=== PATIENT | male | born 1970 | race Caucasian/White ===

== ENCOUNTER 2018-11-10 17:04 | Emergency (ER) | payer OTHER ==
[~2018-11-10] VITALS: Ht 180.3 cm; Wt 97.2 kg
[2018-11-10 17:36] LABS: BASOPHILS # (AUTO) 0.1 X10'3 (0-0.2); BASOPHILS % (AUTO) 1.1 % (0-1); EOSINOPHILS % (AUTO) 0.5 % (0-6); HEMATOCRIT 43.3 % (42.0-52.0); HEMOGLOBIN 14.6 g/dl (14.0-17.9); LYMPHOCYTES # (AUTO) 1.8 X10'3 (1.1-4.8); LYMPHOCYTES % (AUTO) 18.4 % (21-51); MEAN CORPUSCULAR HEMOGLOBIN 30.1 PG (27.0-31.0); MEAN CORPUSCULAR HGB CONC 33.7 g/dL (33.0-36.5); MEAN CORPUSCULAR VOLUME 89.3 FL (78-98); MEAN PLATELET VOLUME 7.3 FL (7.4-10.4); MONOCYTES # (AUTO) 0.9 X10'3 (0-0.9); MONOCYTES % (AUTO) 8.8 % (2-12); NEUTROPHILS % (AUTO) 71.2 % (42-75); PLATELET COUNT 295 X10'3 (140-440); RED BLOOD COUNT 4.85 X10'6 (4.70-6.10); RED CELL DISTRIBUTION WIDTH 14.7 % (11.5-14.5); WHITE BLOOD COUNT 9.8 X10'3 (4.5-11.0)
[2018-11-10 17:48] LABS: ALANINE AMINOTRANSFERASE 51 U/L (12-78); ALBUMIN 3.8 G/DL (3.4-5.0); ALBUMIN/GLOBULIN RATIO 1.2 (1.1-1.5); ALKALINE PHOSPHATASE 34 IU/L (46-116); ANION GAP 12 (8-16); ASPARTATE AMINO TRANSFERASE 43 U/L (10-37); BILIRUBIN,TOTAL 0.5 MG/DL (0.1-1.0); BLOOD UREA NITROGEN 21 MG/DL (7-18); BUN/CREATININE RATIO 18.4 (5.4-32.0); CHLORIDE 101 MMOL/L (99-107); CREATININE 1.14 MG/DL (0.60-1.10); GLUCOSE 104 MG/DL (70-104); POTASSIUM 3.3 MMOL/L (3.5-5.1); SODIUM 140 MMOL/L (135-145); TOTAL CARBON DIOXIDE 27.3 MMOL/L (24-32); eGFR 69 ML/MIN
[2018-11-10 17:55] LABS: PARTIAL THROMBOPLASTIN TIME 23 SECONDS (22-32)
[2018-11-10] MEDS ORDERED: normal saline 1000ML IV soln IVB ONE ×2 (18:20→21:35)
[2018-11-10] MEDS ORDERED: LORazepam 2 mg/ml vial IV ONE (18:20)
[2018-11-10 20:07] LABS: CREATINE KINASE 738 U/L (39-308)
[2018-11-10 21:29] LABS: CLARITY,URINE SLIGHTLY CLOUDY (Clear); COLOR,URINE YELLOW (Yellow); GLUCOSE, URINE NEGATIVE (Neg); KETONES,URINE 40 mg/dl (Neg); LEUKOCYTE ESTERASE ,URINE NEGATIVE (Neg); NITRITES, URINE NEGATIVE (Neg); OCCULT BLOOD,URINE NEGATIVE (Neg); PROTEIN,URINE NEGATIVE (Neg); UROBILINOGEN,URINE 0.2 E.U/dL (0.2-1.0)
[2018-11-10] MEDS ORDERED: metoclopramide 5 mg/ml inj IV ONE ×3 (21:35→23:00)
[2018-11-10 21:47] LABS: UA COLLECTION TYPE VOIDED
[2018-11-10 21:48] LABS: AMORPHOUS PHOSPHATES 3+; BACTERIA,URINE FEW /HPF (Neg); RBC,URINE NONE SEEN /HPF (0-2); SQUAMOUS EPITHELIAL CELL,UR FEW /LPF (FEW); WBC,URINE NONE SEEN /HPF (0-4)
[2018-11-10 22:46] LABS: URINE AMPHETAMINE SCREEN NEGATIVE (Neg); URINE BARBITUATE SCREEN NEGATIVE (Neg); URINE BENZODIAZEPINES SCREEN NEGATIVE (Neg); URINE CANNABINOID SCREEN POSITIVE (Neg); URINE COCAINE SCREEN NEGATIVE (Neg); URINE METHADONE SCREEN NEGATIVE (Neg); URINE OPIATE SCREEN NEGATIVE (Neg); URINE PHENCYCLIDINE SCREEN NEGATIVE (Neg)
[2018-11-10] MEDS ORDERED: PHE12.5T PO (23:02)
[2018-11-10 23:23] VITALS: BP 109/63
== END 2018-11-10 23:39 | disposition home or self-care (01) ==
LOC: ER 17:04
DX: R42 Dizziness and giddiness (principal); R11.10 Vomiting, unspecified; H93.13 Tinnitus, bilateral; R61 Generalized hyperhidrosis; R10.9 Unspecified abdominal pain; F11.90 Opioid use, unspecified, uncomplicated; Z79.899 Other long term (current) drug therapy
CPT/HCPCS: 36415; 71045; 80053; 80305; 81001; 82550; 84484; 85025; 85610; 85730; 93005; 96361; 96374; 96375; 96376; 99284; J2060; J2765; J7030

== ENCOUNTER 2019-08-28 16:55 | Emergency (ER) | payer OTHER ==
[~2019-08-28] VITALS: Ht 180.3 cm; Wt 85.8 kg
[~2019-08-28 16:55] MED LIST: PROM12.512 PO
[2019-08-28] MEDS ORDERED: aspirin 81mg tab.chew PO ONE (17:30)
[2019-08-28 17:56] LABS: BASOPHILS % (AUTO) 0.4 % (0-1); EOSINOPHILS % (AUTO) 0.4 % (0-6); HEMATOCRIT 47.5 % (42.0-52.0); HEMOGLOBIN 16.7 g/dl (14.0-17.9); LYMPHOCYTES # (AUTO) 0.9 X10'3 (1.1-4.8); LYMPHOCYTES % (AUTO) 9.2 % (21-51); MEAN CORPUSCULAR HEMOGLOBIN 30.6 PG (27.0-31.0); MEAN CORPUSCULAR HGB CONC 35.1 g/dL (33.0-36.5); MEAN CORPUSCULAR VOLUME 87.3 FL (78-98); MEAN PLATELET VOLUME 7.2 FL (7.4-10.4); MONOCYTES # (AUTO) 0.4 X10'3 (0-0.9); MONOCYTES % (AUTO) 4.1 % (2-12); NEUTROPHILS # (AUTO) 8.3 X10'3 (1.8-7.7); NEUTROPHILS % (AUTO) 85.9 % (42-75); PLATELET COUNT 275 X10'3 (140-440); RED BLOOD COUNT 5.44 X10'6 (4.70-6.10); RED CELL DISTRIBUTION WIDTH 14.7 % (11.5-14.5); WHITE BLOOD COUNT 9.7 X10'3 (4.5-11.0)
[2019-08-28 18:15] LABS: D-DIMER 0.21 MG/L FEU (0-0.50)
[2019-08-28 18:21] LABS: ALANINE AMINOTRANSFERASE 42 U/L (12-78); ALBUMIN 3.7 G/DL (3.4-5.0); ALBUMIN/GLOBULIN RATIO 1.1 (1.1-1.5); ALKALINE PHOSPHATASE 36 IU/L (46-116); ANION GAP 5 (8-16); ASPARTATE AMINO TRANSFERASE 33 U/L (10-37); BILIRUBIN,TOTAL 0.3 MG/DL (0.1-1.0); BLOOD UREA NITROGEN 15 MG/DL (7-18); BUN/CREATININE RATIO 15.3 (5.4-32.0); CHLORIDE 104 MMOL/L (99-107); CREATININE 0.98 MG/DL (0.60-1.10); GLUCOSE 111 MG/DL (70-104); POTASSIUM 3.6 MMOL/L (3.5-5.1); SODIUM 138 MMOL/L (135-145); TOTAL CARBON DIOXIDE 29.3 MMOL/L (24-32); eGFR 82 ML/MIN
[2019-08-28 18:25] LABS: MAGNESIUM 1.9 MG/DL (1.5-2.4)
[2019-08-28] MEDS ORDERED: PRED20TA PO (19:18)
[2019-08-28] MEDS ORDERED: predniSONE 20 mg tablet PO ONE (19:20)
[2019-08-28 19:26] VITALS: BP 125/75
== END 2019-08-28 19:43 | disposition home or self-care (01) ==
LOC: ER 16:55
DX: R06.00 Dyspnea, unspecified (principal); R06.02 Shortness of breath; R07.89 Other chest pain; F12.90 Cannabis use, unspecified, uncomplicated; F11.90 Opioid use, unspecified, uncomplicated; Z79.899 Other long term (current) drug therapy
CPT/HCPCS: 36415; 71045; 80053; 83735; 83880; 84484; 85025; 85379; 93005; 99285; J7512

== ENCOUNTER 2024-06-27 05:08 | Emergency (ER) | payer OTHER ==
[~2024-06-27] VITALS: Ht 180.3 cm; Wt 111.1 kg
[2024-06-27 05:12] VITALS: TEMP 98.4
[2024-06-27 08:03] LABS: D-DIMER 0.22 MG/L FEU (0-0.50)
[2024-06-27] MEDS ORDERED: ALBU8HFA INH (08:47)
[2024-06-27] MEDS ORDERED: LANS30CA56 PO (08:47)
[2024-06-27] MEDS ORDERED: CLAR500T22 PO (08:47)
[2024-06-27] MEDS ORDERED: AMIT-311 PO (08:47)
[2024-06-27] MEDS ORDERED: AMOX500C96 PO (08:47)
[2024-06-27 11:54] VITALS: BP 126/86; PULSE 67; RESP 15; O2SAT 98
== END 2024-06-27 11:57 | disposition home or self-care (01) ==
LOC: ER 05:08
DX: R10.13 Epigastric pain (principal); F12.90 Cannabis use, unspecified, uncomplicated; Z79.899 Other long term (current) drug therapy
CPT/HCPCS: 36415; 71045; 84484; 85379; 93005; 99285

== ENCOUNTER 2024-06-30 22:27 | Emergency (ER) | payer OTHER ==
[~2024-06-30] VITALS: Ht 180.3 cm; Wt 113.2 kg
[~2024-06-30 22:27] MED LIST changes: +ALBU8HFA INH; +AMIT-311 PO; +AMOX500C96 PO; +CLAR500T22 PO; +LANS30CA56 PO
[2024-06-30 22:50] VITALS: TEMP 99.3
[2024-06-30 23:13] LABS: BASOPHILS # (AUTO) 0.1 X10'3 (0-0.2); BASOPHILS % (AUTO) 1.2 % (0-1); EOSINOPHILS # (AUTO) 0.2 X10'3 (0-0.9); EOSINOPHILS % (AUTO) 3.1 % (0-6); HEMATOCRIT 49.3 % (42.0-52.0); HEMOGLOBIN 17.4 g/dl (14.0-17.9); LYMPHOCYTES # (AUTO) 1.4 X10'3 (1.1-4.8); MEAN CORPUSCULAR HEMOGLOBIN 31.2 PG (27.0-31.0); MEAN CORPUSCULAR HGB CONC 35.2 g/dL (33.0-36.5); MEAN CORPUSCULAR VOLUME 88.5 FL (78-98); MEAN PLATELET VOLUME 7.1 FL (7.4-10.4); MONOCYTES # (AUTO) 0.7 X10'3 (0-0.9); MONOCYTES % (AUTO) 10.9 % (2-12); NEUTROPHILS # (AUTO) 4.3 X10'3 (1.8-7.7); NEUTROPHILS % (AUTO) 63.8 % (42-75); PLATELET COUNT 261 X10'3 (140-440); RED BLOOD COUNT 5.57 X10'6 (4.70-6.10); RED CELL DISTRIBUTION WIDTH 13.7 % (11.5-14.5); WHITE BLOOD COUNT 6.7 X10'3 (4.5-11.0)
[2024-06-30 23:30] LABS: ALANINE AMINOTRANSFERASE 43 U/L (12-78); ALBUMIN 3.8 G/DL (3.4-5.0); ALBUMIN/GLOBULIN RATIO 1.1 (1.1-1.5); ALKALINE PHOSPHATASE 49 IU/L (46-116); ANION GAP 3 (8-16); ASPARTATE AMINO TRANSFERASE 40 U/L (10-37); BILIRUBIN,TOTAL 0.4 MG/DL (0.1-1.0); BLOOD UREA NITROGEN 19 MG/DL (7-18); CALCIUM 8.5 MG/DL (8.5-10.1); CHLORIDE 101 MMOL/L (99-107); CREATININE 1.12 MG/DL (0.60-1.10); GLUCOSE 102 MG/DL (70-104); POTASSIUM 3.7 MMOL/L (3.5-5.1); SODIUM 136 MMOL/L (135-145); TOTAL CARBON DIOXIDE 32.4 MMOL/L (24-32); TOTAL PROTEIN 7.3 G/DL (6.4-8.2); eCRCL 81 ML/MIN; eGFR 69 ML/MIN
[2024-06-30 23:39] LABS: PRO BRAIN NATRIURETIC PEPTIDE < 30 PG/ML (0-125)
[2024-07-01 00:37] VITALS: BP 143/88; PULSE 73; RESP 16; O2SAT 98
== END 2024-07-01 00:38 | disposition home or self-care (01) ==
LOC: ER 22:27
DX: R07.89 Other chest pain (principal)
CPT/HCPCS: 36415; 71045; 80053; 83880; 84484; 85025; 93005; 99285

== ENCOUNTER 2024-12-13 05:47 | Emergency (ER) | payer OTHER ==
[~2024-12-13] VITALS: Ht 180.3 cm; Wt 90.8 kg
[~2024-12-13 05:47] MED LIST changes: -ALBU8HFA INH; -AMIT-311 PO; -AMOX500C96 PO; -CLAR500T22 PO
[2024-12-13 05:51] VITALS: TEMP 97.6
[2024-12-13 07:43] LABS: BILIRUBIN,URINE NEGATIVE (Neg); CLARITY,URINE CLEAR (Clear); COLOR,URINE YELLOW (Yellow); GLUCOSE, URINE NEGATIVE (Neg); KETONES,URINE TRACE mg/dl (Neg); LEUKOCYTE ESTERASE ,URINE NEGATIVE (Neg); NITRITES, URINE NEGATIVE (Neg); OCCULT BLOOD,URINE NEGATIVE (Neg); PROTEIN,URINE NEGATIVE (Neg); UROBILINOGEN,URINE 0.2 E.U/dL (0.2-1.0)
[2024-12-13 07:47] LABS: UA COLLECTION TYPE CLN CATCH MIDSTREAM
[2024-12-13 08:17] LABS: BASOPHILS # (AUTO) 0.1 X10'3 (0-0.2); BASOPHILS % (AUTO) 1.4 % (0-1); EOSINOPHILS # (AUTO) 0.3 X10'3 (0-0.9); EOSINOPHILS % (AUTO) 5.1 % (0-6); HEMOGLOBIN 16.8 g/dl (14.0-17.9); LYMPHOCYTES # (AUTO) 1.9 X10'3 (1.1-4.8); LYMPHOCYTES % (AUTO) 33.8 % (21-51); MEAN CORPUSCULAR HEMOGLOBIN 30.4 PG (27.0-31.0); MEAN CORPUSCULAR HGB CONC 35.1 g/dL (33.0-36.5); MEAN CORPUSCULAR VOLUME 86.6 FL (78-98); MEAN PLATELET VOLUME 7.6 FL (7.4-10.4); MONOCYTES # (AUTO) 0.8 X10'3 (0-0.9); MONOCYTES % (AUTO) 13.6 % (2-12); NEUTROPHILS # (AUTO) 2.5 X10'3 (1.8-7.7); NEUTROPHILS % (AUTO) 46.1 % (42-75); PLATELET COUNT 221 X10'3 (140-440); RED BLOOD COUNT 5.54 X10'6 (4.70-6.10); RED CELL DISTRIBUTION WIDTH 13.4 % (11.5-14.5); WHITE BLOOD COUNT 5.5 X10'3 (4.5-11.0)
[2024-12-13 08:39] LABS: ALBUMIN 4.1 G/DL (3.4-5.0); ALBUMIN/GLOBULIN RATIO 1.2 (1.1-1.5); ALKALINE PHOSPHATASE 70 IU/L (46-116); ANION GAP 10 (8-16); BILIRUBIN,TOTAL 0.3 MG/DL (0.1-1.0); BLOOD UREA NITROGEN 21 MG/DL (7-18); BUN/CREATININE RATIO 14.6 (10.0-20.0); CHLORIDE 103 MMOL/L (99-107); CREATININE 1.44 MG/DL (0.60-1.10); LIPASE 42 U/L (16-77); SODIUM 143 MMOL/L (135-145); TOTAL CARBON DIOXIDE 30.5 MMOL/L (24-32); TOTAL PROTEIN 7.6 G/DL (6.4-8.2); eCRCL 62 ML/MIN; eGFR 51 ML/MIN
--- NOTE | 2024-12-13 08:55 | Physician Documentation ---
History of Present Illness Chief Complaint: Abdominal Pain Stated Complaint: ABD SWELLING Time Seen by MD: 08:40 OK to notify your PCP?: Yes Primary Medical Doctor: NONE " [facility] PRN Source: patient, RN/MD, RN notes reviewed, old records Mode of Arrival: POV Exam Limitations: no limitations HPI 54-year-old male with past medical history of hypertension, hyperlipidemia, SAJI presented to the ER with chief complaints of pain abdomen. Endorses pain abdomen, epigastric region, 6/10, burning type extending from epigastric region to chest, retrosternal. Abdominal pain is associated with bloating sensation, hot button, indigestion, nausea, dyspepsia, acid reflux for the past couple of days. He had a recent EGD and a he is on tegmet daily dose (couple of months Back). Endorses shortness of breath without orthopnea and PND, dizziness, nocturia, increased urinary frequency for the past three weeks. He endorses deg ree degenerative levels and sleep disturbances, snoring while sleeping on the back. He do reports that he is taking suboxone (buprenorphine +naloxone) after his break up with partner on he is feeding emotionally better with suboxone. he denied chest pain, palpitations, wheezing, hematemesis, melena, vomiting. Medication Reconciliation Allergies: Coded Allergies: No Known Allergies (Unverified , 12/13/24) Scheduled Esomeprazole Magnesium (Esomeprazole Magnesium), 1 CAP PO DAILY Promethazine Hcl (Phenergan), 1 TAB PO Q6H Discontinued Medications Lansoprazole (Lansoprazole), 1 CAP PO BID Past Medical History Past Medical History: Hypertension, Sleep Apnea, GERD Other Past Medical History: hyperlipidemia Past Surgical History: noncontributory Patient History: Patient reports no known family medical history. Smoking Status: Former smoker Alcohol Use: Rarely Drug Use: marijuana, heroin, other Lives with: Spouse Lives In: Home Past Social History: soboxone(buprenorphine+naloxone) Review of Systems All Other Systems at this time: Reviewed and Negative ROS reviewd in full & negative except positive pertinents as in hpi Physical Exam Vital Signs: RN Vital Signs have been reviewed: Yes, Temperature: 97.6, Source: Temporal, Heart Rate: 97, Respiratory Rate: 16, BP: 141/100, Pulse Oximetry: 96, Weight: 90.800 Oxygen Flow Rate: 0 General Appearance General: Awake and Alert, oriented to time place person. no acute distress. overweight HEENT: Conjunctiva pink, Sclera clear, Mucus Membranes moist. Neck: Supple without masses and tenderness. no midline tenderness on palpation or with full ROM Resp: Unlabored. Lungs clear to auscultation bilaterally. Heart: Regular Rate and rhythm, normal S1 and S2 without murmur, rub or gallop. Abdomen: Soft and non tender no organomegaly no signs of trauma Extremities: No cyanosis,clubbing or edema. Skin: Warm and Dry. Neuro: GCS 15; no focal deficits Progress Results/Orders Reviewed/noted all lab results: Yes Results/Orders Orders - OTILIO BARBER MD Ethanol (12/13/24 08:53) MG (12/13/24 08:53) Drug Screen, Urine (12/13/24 08:53) Vital Signs 12/13/24 12/13/24 12/13/24 05:51 07:30 07:30 Temp 97.6 Pulse 96 97 Resp 15 16 16 B/P (MAP) 156/78 141/100 (114) Pulse Ox 98 96 O2 Flow Rate 0 Laboratory Tests Test 12/13/24 07:09 12/13/24 08:01 Urine Specimen Description Cln catch midstream Urine Color Yellow Urine Clarity Clear Urine pH 6.0 Urine Specific [place] 1.020 Urine Protein Negative Urine Glucose (UA) Negative Urine Ketones Trace H Urine Occult Blood Negative Urine Nitrite Negative Urine Bilirubin Negative Urine Urobilinogen 0.2 Urine Leukocyte Esterase Negative Urine Culture Indicated Not ind Volume Urine Centrifuged 10 ml Urine Comment White Blood Count 5.5 Red Blood Count 5.54 Hemoglobin 16.8 Hematocrit 48.0 Mean Corpuscular Volume 86.6 Mean Corpuscular Hemoglobin 30.4 Mean Corpuscular Hemoglobin Concent 35.1 Red Cell Distribution Width 13.4 Platelet Count 221 Mean Platelet Volume 7.6 Neutrophils (%) (Auto) 46.1 Lymphocytes (%) (Auto) 33.8 Monocytes (%) (Auto) 13.6 H Eosinophils (%) (Auto) 5.1 Basophils (%) (Auto) 1.4 H Neutrophils # (Auto) 2.5 Lymphocytes # (Auto) 1.9 Monocytes # (Auto) 0.8 Eosinophils # (Auto) 0.3 Basophils # (Auto) 0.1 CBC Comment Sodium Level 143 Chloride Level 103 Carbon Dioxide Level 30.5 Anion Gap 10 Blood Urea Nitrogen 21 H Creatinine 1.44 H Estimated GFR/1.73 m2 51 BUN/Creatinine Ratio 14.6 Calcium Level 9.0 Total Bilirubin 0.3 Alkaline Phosphatase 70 Total Protein 7.6 Albumin 4.1 Globulin 3.5 Albumin/Globulin Ratio 1.2 Lipase 42 Chemistry Comments Re-Evaluation Re-Evaluation : Re-Evaluation: Improved Progress Patient was seen and examined. Patient is given reassurance. Patient was seen by the resident. I reviewed the case with the resident and agreed with his management. Patient was then discharged home in to take his medications as prescribed. EKG/XRAY/CT/US/VASC/MRI EKG : Additional Comment [facility] Test Date: 2024-12-13 Test Time: 09:13:15 Pat Name: ALEXIS ROCHE Department: [facility]- Patient ID: [id number] Room: Gender: M Bond Clerk: : 1970 Requested By: OTILIO BARBER Order Number: [id number] Reading MD: Dr. Otilio Barber Measurements Intervals [place] Rate: 80 P: 27 AK: 188 QRS: 20 QRSD: 110 T: -5 QT: 387 QTc: 447 Interpretive Statements Sinus rhythm Probable left atrial enlargement Borderline T abnormalities, inferior leads Electronically Signed On 12-13-2024 11:30:[address] Otilio Barber Please click the below link to view image of tracing. EKG Date and Time:12/13/24 0913 Electronically Signed by: OTILIO BARBER MD Date and Time: 12/13/24 1130 Chest X-Ray : Additional Comments EXAM: DI CHEST,SINGLE VIEW HISTORY: Shortness of breath COMPARISON: DI CHEST,SINGLE VIEW on DOS: 06/30/24, DI CHEST,SINGLE VIEW on DOS: 06/27/24, CHEST,SINGLE VIEW on DOS: 08/28/19, CT scan of the abdomen performed earlier same day TECHNIQUE: Portable upright AP view of the chest was performed. FINDINGS: There is mild relative elevation of the right hemidiaphragm. No pneumothorax, consolidative infiltrates, or pulmonary edema. The heart is borderline e nlarged. IMPRESSION: No acute intrathoracic process. Electronically Signed by:VENKATA HUGGINS MD Date & Time: 12/13/[address] : Impression CT ABDOMEN AND PELVIS WITHOUT CONTRAST CLINICAL HISTORY: pain abdomen TECHNIQUE: Multiple contiguous axial images of the abdomen and pelvis without intravenous contrast. The images were reformatted degenerate coronal and sagittal reconstructions. All CT scans at this medical facility are performed using dose modulation techniques as appropriate to a performed exam including the following:Automated exposure control was utilized; adjustment of the MA and/or KV according to patient size; and use of iterative reconstruction technique. Radiation Dose Information: CT Dose: CTDI volume is 32 mGy. Dose-length product is 18 13 mGy*cm Comparison: None FINDINGS: Evaluation of the abdomen and pelvis is limited without intravenous contrast. The liver, gallbladder, pancreas, kidneys, adrenal glands, and spleen appear within normal limits. There is no gross evidence of abdominal lymphadenopathy. There is no free fluid or free air. The stomach grossly appears unremarkable. The small and large bowel loops demonstrate normal caliber and distribution. The appendix is not seen in the right lower quadrant abdomen. There are no secondary signs of acute appendicitis. There is moderate amount of stool in the colon. The abdominal aorta and IVC appear within normal limits. The bladder appears unremarkable for the degree of distention. Pelvic organ appears within normal limits. There is no gross evidence of a pelvic mass. There is no free fluid collection. Lung bases are clear. There is no acute osseous abnormality. IMPRESSION: 1. There is no acute process in the abdomen and pelvis. 2. Moderate amount of stool in the colon. HS:Y Electronically Signed by:EVER MACIAS MD Date & Time: 12/13/24 1009 Medical Decision Making Findings GERD Recent EGD, on tagmet daily Treated with GI cocktail-sucralfate and pantoprazole Shortness of breathe secondary to obstructive sleep apnea No need of oxygen support Needs to follow up with primary care for sleep apnea evaluation and treatment. STALIN Serum creatinine is 1.44 Received 1 L of normal saline bolus. Hypertension Blood pressures in the 140s Departure Disposition: 01 HOME / SELF CARE / HOMELESS Impression: Primary Impression: GERD (gastroesophageal reflux disease) Qualified Codes: K21.9 - Gastro-esophageal reflux disease without esophagitis Additional Impressions: SAJI (obstructive sleep apnea) Hypertension Qualified Codes: I10 - Essential (primary) hypertension Condition: Stable Discharge Instructions: Abdominal Pain (Nonspecific) Additional Instructions: Follow up with primary care physician in one week with a CBC, CMP Follow up with a excelsior cutter for further GERD management Referrals: NO PRIMARY CARE PROVIDER (PCP) Prescriptions Esomeprazole Magnesium (Esomeprazole Magnesium) 40 Mg Capsule.dr 1 CAP PO DAILY for 14 Days, #14 CAP 0 Refills Prov: VINNIE SANCHEZ, RES 12/13/24 Education Educated: Patient Educated regarding: diagnosis, need for follow up, other Signature Scribe Signature: The note accurately reflects work and decisions made by me.Vinnie Sanchez - Resident 12/13/24 11:31 Scribed for Otilio Barber MD by Iam Padilla . 12/13/24 11:53 (Progress) Attestation: The note accurately reflects work and decisions made by me.Otilio Barber MD 12/13/24 08:55 OTILIO BARBER MD Dec 13, 2024 08:55 VINNIE SANCHEZ, RES Dec 13, 2024 09:31 IAM IVERSON Dec 13, 2024 11:53
--- NOTE | 2024-12-13 09:14 | ELECTROCARDIOGRAPH REPORT ---
[facility] Test Date: 2024-12-13 Test Time: 09:13:15 Pat Name: ALEXIS ROCHE [facility]- [id number] Room: Gender: M Hunter: : 1970 Requested By: MAMI EMERY Order Number: [id number] Reading MD: Dr. Mami Emery Measurements Intervals [place] Rate: 80 P: 27 MO: 188 QRS: 20 QRSD: 110 T: -5 QT: 387 QTc: 447 Interpretive Statements Sinus rhythm Probable left atrial enlargement Borderline T abnormalities, inferior leads Electronically Signed On 12-13-2024 11:30:[address] Mami Emery Please click the below link to view image of tracing.
[2024-12-13 09:27] VITALS: BP_DIAS 89; RESP 16; O2SAT 96
[2024-12-13 09:29] LABS: ALANINE AMINOTRANSFERASE 61 U/L (12-78); ASPARTATE AMINO TRANSFERASE 38 U/L (10-37)
[2024-12-13 09:40] LABS: ETHANOL < 10 MG/DL (<10); MAGNESIUM 2.1 MG/DL (1.5-2.4)
[2024-12-13 09:41] VITALS: BP_SYST 132; PULSE 84
[2024-12-13] MEDS: metoprolol tartrate 1mg/ml inj IV ONE (09:41)
[2024-12-13] MEDS: sucralfate 1 gm tablet PO ONE (09:41)
[2024-12-13] MEDS: pantoprazole 40mg Tablet.DR PO ONE (09:41)
[2024-12-13 09:45] LABS: GLUCOSE 134 MG/DL (70-104); POTASSIUM 4.4 MMOL/L (3.5-5.1)
--- NOTE | 2024-12-13 10:11 | RADIOLOGY REPORT ---
CT ABDOMEN AND PELVIS WITHOUT CONTRAST CLINICAL HISTORY: pain abdomen TECHNIQUE: Multiple contiguous axial images of the abdomen and pelvis without intravenous contrast. T he images were reformatted degenerate coronal and sagittal reconstructions. All CT scans at this medical facility are performed using dose modulation techniques as appropriate t o a performed exam including the following:Automated exposure control was utilized; adjustment of the MA and/or KV according to patient size; and use of iterative reconstruction technique. Radiation Dose Information: CT Dose: CTDI volume is 32 mGy. Dose-length product is 18 13 mGy*cm Comparison: None FINDINGS: Evaluation of the abdomen and pelvis is limited without intravenous contrast. The liver, gallbladder, pancreas, kidneys, adrenal glands, and spleen appear within normal limits. There is no gross evidence of abdominal lymphadenopathy. There is no free fluid or free air. The stomach grossly appears unremarkable. The small and large bowel loops demonstrate normal caliber and distribution. The appendix is not seen in the right lower quadrant abdomen. There are no seconda ry signs of acute appendicitis. There is moderate amount of stool in the colon. The abdominal aorta and IVC appear within normal limits. The bladder appears unremarkable for the degree of distention. Pelvic organ appears within normal hearn its. There is no gross evidence of a pelvic mass. There is no free fluid collection. Lung bases are clear. There is no acute osseous abnormality. IMPRESSION: 1. There is no acute process in the abdomen and pelvis. 2. Moderate amount of stool in the colon. HS:Y
[2024-12-13] MEDS: normal saline 1000ml 1,000 ML IV ONE (10:43)
--- NOTE | 2024-12-13 11:24 | RADIOLOGY REPORT ---
EXAM: DI CHEST,SINGLE VIEW HISTORY: Shortness of breath COMPARISON: DI CHEST,SINGLE VIEW on DOS: 06/30/24, DI CHEST,SINGLE VIEW on DOS: 06/27/24, CHEST,SINGL E VIEW on DOS: 08/28/19, CT scan of the abdomen performed earlier same day TECHNIQUE: Portable upright AP view of the chest was performed. FINDINGS: There is mild relative elevation of the right hemidiaphragm. No pneumothorax, consolidative infiltrat es, or pulmonary edema. The heart is borderline enlarged. IMPRESSION: No acute intrathoracic process.
[2024-12-13] MEDS ORDERED: ESOM40CA66 PO (11:29)
== END 2024-12-13 12:50 | disposition home or self-care (01) ==
LOC: ER 05:48
DX: K21.9 Gastro-esophageal reflux disease without esophagitis (principal); G47.33 Obstructive sleep apnea (adult) (pediatric); I10 Essential (primary) hypertension; F12.90 Cannabis use, unspecified, uncomplicated; E78.5 Hyperlipidemia, unspecified; Z79.899 Other long term (current) drug therapy; F11.90 Opioid use, unspecified, uncomplicated
CPT/HCPCS: 36415; 71045; 74176; 80053; 80320; 81003; 83690; 83735; 85025; 93005; 96360; 99285; J7030; 99284

== ENCOUNTER 2025-01-27 06:21 | Emergency (ER) | payer OTHER ==
[~2025-01-27] VITALS: Ht 180.3 cm; Wt 111.0 kg
[~2025-01-27 06:21] MED LIST changes: +ESOM40CA66 PO; -LANS30CA56 PO
[2025-01-27] MEDS ORDERED: AMIT50TA15 (06:56)
[2025-01-27] MEDS ORDERED: CIME800T PO (06:56)
[2025-01-27] MEDS ORDERED: ALBU10.7 (06:56)
[2025-01-27 07:00] LABS: MEAN PLATELET VOLUME 7.3 FL (7.4-10.4); RED CELL DISTRIBUTION WIDTH 13.6 % (11.5-14.5)
[2025-01-27 07:14] LABS: CREATININE 1.17 MG/DL (0.60-1.10); TOTAL CARBON DIOXIDE 28.7 MMOL/L (24-32); eCRCL 77 ML/MIN; eGFR 65 ML/MIN
[2025-01-27 07:55] LABS: LEUKOCYTE ESTERASE ,URINE NEGATIVE (Neg); NITRITES, URINE NEGATIVE (Neg); OCCULT BLOOD,URINE NEGATIVE (Neg)
[2025-01-27 07:56] LABS: UA COLLECTION TYPE CLN CATCH MIDSTREAM
--- NOTE | 2025-01-27 08:09 | Physician Documentation ---
History of Present Illness Chief Complaint: Abdominal Pain Stated Complaint: STOMACH PAINS Time Seen by MD: 07:04 Primary Medical Doctor: NONE " [facility] PRN Mode of Arrival: POV HPI 54 yom h/o gerd followed by GI p/w 6 months of gastric distention, post prandial early fullness with mild nausea. No vomiting. Normal stools. Increasing nocturnal urinary frequency. +weight gain. No significant alcohol use. Medication Reconciliation Allergies: Coded Allergies: No Known Allergies (Unverified , 01/27/25) Scheduled Cimetidine (Tagamet), 1 TAB PO Q12H, (Reported) Esomeprazole Magnesium (Esomeprazole Magnesium), 1 CAP PO DAILY Promethazine Hcl (Phenergan), 1 TAB PO Q6H Miscellaneous Medications Albuterol Sulfate/Budesonide (Airsupra 90-80 Mcg Inhaler), (Reported) Amitriptyline Hcl* (Elavil*), (Reported) Past Medical History Past Medical History: Hypertension, Sleep Apnea, GERD Past Surgical History: noncontributory Patient History: Patient reports no known family medical history. Alcohol Use: Rarely Drug Use: marijuana, heroin, other Lives with: Spouse Lives In: Home Past Social History: soboxone(buprenorphine+naloxone) Review of Systems All Other Systems at this time: Reviewed and Negative Physical Exam Vital Signs: RN Vital Signs have been reviewed: Yes, Temperature: 98.3, Source: Temporal, Heart Rate: 80, Respiratory Rate: 16, BP: 147/98, Pulse Oximetry: 96, Weight: 111.050 Oxygen Flow Rate: 0 General Appearance well appearing no distress moist mucous membranes lungs ctab abdomen obese, soft non tender lower ext no edema Progress Results/Orders Reviewed/noted all lab results: Yes Results/Orders Completed Orders - AKIL SCHNEIDER MD Urinalysis, Cult If Indicated (01/27/25 06:38) Cbc/Diff (01/27/25 06:38) Lipase (01/27/25 06:38) CMP (01/27/25 06:38) Vital Signs 01/27/25 01/27/25 06:33 06:49 Temp 98.3 Pulse 80 Resp 18 16 B/P (MAP) 147/98 Pulse Ox 96 O2 Flow Rate 0 Laboratory Tests Test 01/27/25 06:47 01/27/25 07:41 White Blood Count 3.7 L Red Blood Count 5.04 Hemoglobin 15.4 Hematocrit 43.6 Mean Corpuscular Volume 86.5 Mean Corpuscular Hemoglobin 30.5 Mean Corpuscular Hemoglobin Concent 35.2 Red Cell Distribution Width 13.6 Platelet Count 192 Mean Platelet Volume 7.3 L Neutrophils (%) (Auto) 46.4 Lymphocytes (%) (Auto) 31.9 Monocytes (%) (Auto) 13.6 H Eosinophils (%) (Auto) 6.1 H Basophils (%) (Auto) 2.0 H Neutrophils # (Auto) 1.7 L Lymphocytes # (Auto) 1.2 Monocytes # (Auto) 0.5 Eosinophils # (Auto) 0.2 Basophils # (Auto) 0.1 CBC Comment Sodium Level 139 Potassium Level 4.1 Chloride Level 102 Carbon Dioxide Level 28.7 Anion Gap 8 Blood Urea Nitrogen 18 Creatinine 1.17 H Estimated GFR/1.73 m2 65 BUN/Creatinine Ratio 15.4 Glucose Level 115 H Calcium Level 8.9 Total Bilirubin 0.4 Aspartate Amino Transf (AST/SGOT) 22 Alanine Aminotransferase (ALT/SGPT) 51 Alkaline Phosphatase 74 Total Protein 7.3 Albumin 3.9 Globulin 3.4 Albumin/Globulin Ratio 1.1 Lipase 33 Chemistry Comments Urine Specimen Description Cln catch midstream Urine Color Yellow Urine Clarity Clear Urine pH 6.0 Urine Specific [place] 1.015 Urine Protein Negative Urine Glucose (UA) Negative Urine Ketones Negative Urine Occult Blood Negative Urine Nitrite Negative Urine Bilirubin Negative Urine Urobilinogen 0.2 Urine Leukocyte Esterase Negative Urine Culture Indicated Not ind Volume Urine Centrifuged 10 ml Urine Comment EKG/XRAY/CT/US/VASC/MRI Ultrasound : Impression I independently interpreted u/s no cholelithiasis, cholecystitis or free fluid Medical Decision Making Additional info obtained from: old records Findings on chart review in June he had also complained of similar symptoms. Differential Dx:Considerations: Include: Cholelithasis, Gastritis/PUD, Gastroenteritis Departure Disposition: HOME / SELF CARE / HOMELESS Impression: Primary Impression: Undifferentiated abdominal pain Additional Impression: Hepatic steatosis Additional Impression Text h/o gerd, h pylori presents with [address] last month non acute. Benign labs, exam and vitals today. US showing mild hepatic steatosis. Further workup per primary Additional Instructions: Please establish with a primary care doctor, they can order further testing to evaluate your colon and liver. Return for fever or increasing abdominal pain. Referrals: NO PRIMARY CARE PROVIDER (PCP) Signature Scribe Signature: na Attestation: AKIL Hughes MD Jan 27, 2025 08:09
--- NOTE | 2025-01-27 09:14 | RADIOLOGY REPORT ---
INDICATION: epigastric pain TECHNIQUE: Multiple real-time sonographic images were obtained of the right upper quadrant. COMPARISON: None FINDINGS: The liver demonstrates increased echotexture without focal mass lesions. The liver measure s 16 cm. There is no intrahepatic or extrahepatic ductal dilatation. The common duct measures 0.4 cm. The gallbladder is without evidence of stone or sludge. The gallbladder wall measures 0.3 cm and is w ithin normal limits. The right kidney measures 12.1 cm. The right kidney is normal in contour, size, and shape. The echoge nicity is normal. There is no hydronephrosis. The pancreas is not well visualized due to overlying bowel gas. IMPRESSION: Hepatic steatosis. Borderline hepatomegaly.
[2025-01-27 10:19] VITALS: BP 147/98; PULSE 80; RESP 16; TEMP 98.6; O2SAT 96
== END 2025-01-27 10:20 | disposition home or self-care (01) ==
LOC: ER 06:21
DX: K76.0 Fatty (change of) liver, not elsewhere classified (principal); I10 Essential (primary) hypertension; G47.30 Sleep apnea, unspecified; F12.90 Cannabis use, unspecified, uncomplicated; F11.90 Opioid use, unspecified, uncomplicated; F19.90 Other psychoactive substance use, unspecified, uncomplicated; K21.9 Gastro-esophageal reflux disease without esophagitis; Z79.899 Other long term (current) drug therapy
CPT/HCPCS: 36415; 76700; 80053; 81003; 83690; 85025; 99284